=== PATIENT | male | born 1990 | race Caucasian/White ===

== ENCOUNTER 2024-04-25 09:45 | Emergency (ER) | payer MEDICAID, OTHER ==
[~2024-04-25] VITALS: Ht 172.7 cm; Wt 86.2 kg
[2024-04-25] MEDS ORDERED: NAPR500T6 PO (11:00)
[2024-04-25 11:09] VITALS: BP 111/74; TEMP 98; O2SAT 98
== END 2024-04-25 11:09 | disposition home or self-care (01) ==
LOC: ER 09:45
DX: S39.012A Strain of muscle, fascia and tendon of lower back, initial encounter (principal); F17.210 Nicotine dependence, cigarettes, uncomplicated; Z88.7 Allergy status to serum and vaccine; V00.328A Other snow-ski accident, initial encounter; Y93.89 Activity, other specified; Y92.89 Other specified places as the place of occurrence of the external cause; Y99.8 Other external cause status
CPT/HCPCS: A4606; A4663